=== PATIENT | female | born 1930 | race Hispanic/Latino ===

== ENCOUNTER 2018-01-22 23:47 | Inpatient (IN) | payer MEDICARE ==
[~2018-01-22] VITALS: Ht 152.4 cm; Wt 68.4 kg
[~2018-01-22 23:47] MED LIST: AEC81 PO; AMLO10TA2 PO; CLON0.2T PO; CLOP75TA32 PO; FURO20TA4 PO; HYDR100T27 PO; INSU100I3 SQ; LEVO100T12 PO; MINO2.5T3 PO; NEBI5TAB8 PO
[2018-01-23] MEDS ORDERED: IPRATROPIUM/ALBUTEROL SULFATE 3 ML SOLUTION IH ONE (00:48)
[2018-01-23 00:55] LABS: BASOPHILS % (AUTO) 0.4 % (0.0-5.0); HEMATOCRIT 31.7 % (36-48); LYMPHOCYTES % (AUTO) 1.9 % (21.0-51.0); MEAN CORPUSCULAR HGB CONC 33.8 g/dL (32.0-36.0); MEAN CORPUSCULAR VOLUME 94.5 fL (79-99); MONOCYTES % (AUTO) 4.3 % (3.0-13.0); NEUTROPHILS % (AUTO) 93.4 % (40.0-77.0); PLATELET COUNT (AUTO) 215 K/uL (130-400); RED BLOOD CELL COUNT(AUTO) 3.35 MIL/uL (4.00-5.50); RED CELL DISTRIBUTION WIDTH 13.7 % (11.0-15.5); WHITE BLOOD COUNT (AUTO) 17.9 K/uL (4.8-10.8)
[2018-01-23 01:06] LABS: ACETONE,BLOOD NEGATIVE (NEGATIVE)
[2018-01-23 01:14] LABS: B-TYPE NATRIURETIC PEPTIDE 1130 pg/mL (0-100)
[2018-01-23 01:19] LABS: ALANINE AMINOTRANSFERASE 21 U/L (12-78); ALBUMIN 3.2 g/dL (3.5-5.0); ASPARTATE AMINOTRANSFERASE 30 U/L (10-37); BILIRUBIN,TOTAL 0.3 mg/dL (0.2-1.0); CARBON DIOXIDE 21 mmol/L (21-32); CREATININE 3.5 mg/dL (0.5-1.5); GLOMERULAR FILTR. RATE CALC 13 mL/min (>60); TOTAL PROTEIN, SERUM 7.9 g/dL (6.0-8.3)
[2018-01-23 01:30] LABS: CHLORIDE 96 mmol/L (101-111); POTASSIUM 5.4 mmol/L (3.5-5.1); SODIUM SERUM 130 mmol/L (136-145)
[2018-01-23 01:35] LABS: GLUCOSE,RANDOM 526 mg/dL (70-105); UREA NITROGEN, BLOOD 105 mg/dL (7-18)
[2018-01-23] MEDS ORDERED: INSULIN HUMULIN R 100 UNIT/ML 3ML ONE (01:58)
[2018-01-23] MEDS ORDERED: SODIUM CHLORIDE 0.9% 1000ML 1,000 ML IV ONE (02:53)
[2018-01-23 03:14] LABS: APPEARANCE,URINE Clear (CLEAR); BILIRUBIN,URINE Negative (NEGATIVE); COLOR,URINE Yellow (YELLOW); GLUCOSE, URINE (UA) >=1000 mg/dL (NEGATIVE); KETONES,URINE Negative (NEGATIVE); LEUKOCYTE ESTERASE ,URINE Negative (NEGATIVE); NITRATE,URINE Negative (NEGATIVE); OCCULT BLOOD,URINE Negative (NEGATIVE); PROTEIN,URINE 300 (NEGATIVE); UROBILINOGEN,URINE 0.2 mg/dL (0.2-1.0)
[2018-01-23 03:24] LABS: RBC,URINE 0-1 /HPF (0-1)
[2018-01-23 03:25] LABS: BACTERIA,URINE Rare /HPF (None Seen); WBC,URINE 0-1 /HPF (0-1)
[2018-01-23] MEDS ORDERED: FUROSEMIDE 10 MG/ML 4ML VIAL ONE (03:25)
[2018-01-23] MEDS ORDERED: GUAIFENESIN-CODEINE 5 ML SYRUP PO PRN ×2 (03:30→05:00)
[2018-01-23] MEDS ORDERED: CLONIDINE HCL 0.1 MG TABLET ONE (03:53)
[2018-01-23] MEDS ORDERED: DEXTROSE 50%-WATER 50 ML DISP.SYRIN IV PRN (05:00)
[2018-01-23] MEDS ORDERED: SODIUM CHLORIDE 0.9% 1000ML 1,000 ML IV SCH (05:00)
[2018-01-23] MEDS ORDERED: GLUCAGON 1MG KIT 1 MG ML IM PRN (05:00)
[2018-01-23] MEDS ORDERED: ONDANSETRON HCL MDV 20ML 2 MG/ML VIAL IVP PRN (05:00)
[2018-01-23 05:30] VITALS: BP 177/64
[2018-01-23] MEDS ORDERED: SODIUM POLYSTYRENE SULFONATE 15 GM/60 ML ML PO ONE (05:45)
[2018-01-23] MEDS: ZOSYN 3.375GM+NS 50ML 50 ML IV SCH ×2 (06:17→18:10)
[2018-01-23] MEDS: INSULIN R PO SS1 SQ SCH ×4 (06:35→22:05)
[2018-01-23 06:48] LABS: HEMATOCRIT 29.9 % (36-48); MEAN CORPUSCULAR HEMOGLOBIN 32.1 pg (27.0-33.0); MEAN CORPUSCULAR HGB CONC 34.7 g/dL (32.0-36.0); MEAN CORPUSCULAR VOLUME 92.6 fL (79-99); PLATELET COUNT (AUTO) 224 K/uL (130-400); RED BLOOD CELL COUNT(AUTO) 3.23 MIL/uL (4.00-5.50); WHITE BLOOD COUNT (AUTO) 23.4 K/uL (4.8-10.8)
[2018-01-23 06:58] LABS: CREATININE 3.1 mg/dL (0.5-1.5); POTASSIUM 3.9 mmol/L (3.5-5.1)
[2018-01-23 07:00] VITALS: BP 178/54
[2018-01-23 07:31] LABS: B-TYPE NATRIURETIC PEPTIDE 936 pg/mL (0-100)
[2018-01-23] MEDS ORDERED: ONDANSETRON HCL 4 MG/2 ML VIAL ONE (07:36)
[2018-01-23 07:50] LABS: ABG BASE EXCESS -6.5 mmol/L (-2.0-3.0); ABG HCO3 17.7 mmol/L (21.0-28.0); ABG OXYGEN SATURATION 85.1 % (95.0-99.0); ABG PCO2 32 mmHg (32-45)
[2018-01-23 08:10] LABS: HEMOGLOBIN A1C 8.5 % (4.0-6.0)
[2018-01-23] MEDS: HYDRALAZINE HCL 20 MG/ML VIAL IV PRN (08:17)
[2018-01-23] MEDS ORDERED: FUROSEMIDE 10 MG/ML 4ML VIAL IVP SCH (09:00)
[2018-01-23] MEDS: IPRATROPIUM/ALBUTEROL SULFATE 3 ML SOLUTION IH SCH ×4 (10:15→22:26)
[2018-01-23 11:00] VITALS: BP 114/57
[2018-01-23] MEDS ORDERED: LEVOFLOXACIN 250 MG/D5W 50ML 50 ML IV SCH (11:00)
[2018-01-23] MEDS: HEPARIN SODIUM 5000UNIT/ML 1ML VIAL SQ SCH ×2 (14:45→22:03)
[2018-01-23 16:00] VITALS: BP 167/58
[2018-01-23] MEDS: ACETYLCYSTEINE 10% 100MG/ML 4ML VIAL IH SCH ×2 (19:05→22:27)
[2018-01-23 20:54] VITALS: BP 165/70
[2018-01-23] MEDS: DOXYCYCLINE 100MG+NS 250ML 250 ML IV SCH (21:59)
[2018-01-24 00:41] VITALS: BP 200/99
[2018-01-24] MEDS: HYDRALAZINE HCL 20 MG/ML VIAL IV PRN (01:02)
[2018-01-24] MEDS: IPRATROPIUM/ALBUTEROL SULFATE 3 ML SOLUTION IH SCH ×6 (01:14→22:05)
[2018-01-24] MEDS ORDERED: SODIUM CHLORIDE 3% FOR INHALATION 4 ML/AMP VIAL.NEB IH ONE (01:53)
[2018-01-24 01:54] VITALS: BP 170/80
[2018-01-24] MEDS: ACETAMINOPHEN 325 MG TAB PO PRN ×2 (03:33→23:05)
[2018-01-24 04:31] VITALS: BP 180/50
[2018-01-24] MEDS: ZOSYN 3.375GM+NS 50ML 50 ML IV SCH ×2 (06:17→18:48)
[2018-01-24] MEDS: ACETYLCYSTEINE 10% 100MG/ML 4ML VIAL IH SCH ×3 (06:19→22:05)
[2018-01-24] MEDS: INSULIN R PO SS1 SQ SCH ×4 (06:34→21:46)
[2018-01-24] MEDS: HEPARIN SODIUM 5000UNIT/ML 1ML VIAL SQ SCH ×3 (06:38→21:44)
[2018-01-24 06:41] LABS: HEMATOCRIT 31.6 % (36-48); MEAN CORPUSCULAR HEMOGLOBIN 30.7 pg (27.0-33.0); MEAN CORPUSCULAR HGB CONC 33.4 g/dL (32.0-36.0); MEAN CORPUSCULAR VOLUME 92.1 fL (79-99); PLATELET COUNT (AUTO) 215 K/uL (130-400); RED BLOOD CELL COUNT(AUTO) 3.43 MIL/uL (4.00-5.50); RED CELL DISTRIBUTION WIDTH 13.9 % (11.0-15.5); WHITE BLOOD COUNT (AUTO) 25.5 K/uL (4.8-10.8)
[2018-01-24 06:50] LABS: CREATININE 3.3 mg/dL (0.5-1.5); MAGNESIUM 1.4 mg/dL (1.80-2.40); POTASSIUM 3.7 mmol/L (3.5-5.1); URIC ACID 10.3 mg/dL (2.6-7.2)
[2018-01-24 07:46] LABS: LYMPHOCYTES % (MANUAL) 3 % (22-44); MAN.DIFF COMMENT-IMPRESSION MANUAL DIFFERENTIAL; MONOCYTES % (MANUAL) 7 % (2-9); SEGMENTED NEUTROPHILS % 90 % (40-70)
[2018-01-24 07:47] LABS: PLATELET MORPHOLOGY COMMENT ADEQUATE
[2018-01-24 08:36] VITALS: BP 165/59
[2018-01-24] MEDS ORDERED: LEVO100 PO (09:57)
[2018-01-24] MEDS ORDERED: ATOR40TA69 PO (09:57)
[2018-01-24] MEDS ORDERED: FURO40TA5 PO (09:57)
[2018-01-24] MEDS ORDERED: IBUP-2070 PO (09:57)
[2018-01-24] MEDS ORDERED: CARV6.25 PO (09:57)
[2018-01-24] MEDS ORDERED: MINO2.5T3 PO (09:57)
[2018-01-24] MEDS ORDERED: AMLO10TA2 PO (09:57)
[2018-01-24] MEDS ORDERED: CLON0.2T PO (09:57)
[2018-01-24] MEDS ORDERED: HYDR-4154 PO (09:57)
[2018-01-24] MEDS ORDERED: ISOS30TA6 PO (09:57)
[2018-01-24] MEDS ORDERED: AMLODIPINE BESYLATE 5 MG TAB PO SCH (10:00)
[2018-01-24] MEDS: DOXYCYCLINE 100MG+NS 250ML 250 ML IV SCH ×2 (10:58→21:44)
[2018-01-24] MEDS: FOLIC ACID/VITAMIN B COMP W-C 1 MG CAPSULE PO SCH (10:58)
[2018-01-24 12:00] VITALS: BP 197/55
[2018-01-24] MEDS: HYDRALAZINE HCL 25 MG TABLET PO SCH ×2 (14:40→21:43)
[2018-01-24] MEDS ORDERED: PHARMACY COMMUNICATION MISC SCH (15:00)
[2018-01-24] MEDS ORDERED: MAGNESIUM 2GM PREMIX 50ML 50 ML IV SCH (15:15)
[2018-01-24 16:00] VITALS: BP 173/97
[2018-01-24] MEDS ORDERED: FUROSEMIDE 40 MG TABLET PO SCH (17:00)
[2018-01-24] MEDS ORDERED: SODIUM CHLORIDE 0.9% 1000ML 1,000 ML IV SCH (18:45)
[2018-01-24] MEDS: CLONIDINE HCL 0.2 MG TABLET PO SCH (18:48)
[2018-01-24] MEDS: ZYVOX 600 MG TAB PO SCH (18:48)
[2018-01-24] MEDS: CARVEDILOL 6.25 MG TABLET PO SCH (21:43)
[2018-01-24] MEDS: ATORVASTATIN CALCIUM 40 MG TABLET PO SCH (21:44)
[2018-01-25] VITALS (7 sets, daily range): BP systolic 117–188; BP diastolic 49–78
[2018-01-25] MEDS: CLONIDINE HCL 0.2 MG TABLET PO SCH ×3 (01:12→16:05)
[2018-01-25] MEDS: IPRATROPIUM/ALBUTEROL SULFATE 3 ML SOLUTION IH SCH ×6 (02:32→21:34)
[2018-01-25 04:53] LABS: HEMATOCRIT 29.8 % (36-48); MEAN CORPUSCULAR HEMOGLOBIN 31.7 pg (27.0-33.0); MEAN CORPUSCULAR HGB CONC 34.5 g/dL (32.0-36.0); PLATELET COUNT (AUTO) 201 K/uL (130-400); RED BLOOD CELL COUNT(AUTO) 3.23 MIL/uL (4.00-5.50); RED CELL DISTRIBUTION WIDTH 13.8 % (11.0-15.5); WHITE BLOOD COUNT (AUTO) 20.2 K/uL (4.8-10.8)
[2018-01-25 05:06] LABS: BAND NEUTROPHILS % (MANUAL) 5 % (0-2); LYMPHOCYTES % (MANUAL) 4 % (22-44); MAN.DIFF COMMENT-IMPRESSION MANUAL DIFFERENTIAL; MONOCYTES % (MANUAL) 5 % (2-9); PLATELET MORPHOLOGY COMMENT ADEQUATE; SEGMENTED NEUTROPHILS % 86 % (40-70)
[2018-01-25 05:11] LABS: CREATININE 2.9 mg/dL (0.5-1.5); MAGNESIUM 1.5 mg/dL (1.80-2.40); PHOSPHORUS 3.8 mg/dL (2.5-4.9); POTASSIUM 3.5 mmol/L (3.5-5.1)
[2018-01-25] MEDS ORDERED: LEVOTHYROXINE 100 MCG TABLET PO SCH (06:30)
[2018-01-25] MEDS: ACETYLCYSTEINE 10% 100MG/ML 4ML VIAL IH SCH ×3 (06:39→21:34)
[2018-01-25] MEDS: ZYVOX 600 MG TAB PO SCH ×2 (06:42→16:00)
[2018-01-25] MEDS: HEPARIN SODIUM 5000UNIT/ML 1ML VIAL SQ SCH ×2 (06:51→16:10)
[2018-01-25] MEDS: INSULIN R PO SS1 SQ SCH ×4 (06:52→21:20)
[2018-01-25] MEDS: ZOSYN 3.375GM+NS 50ML 50 ML IV SCH (06:54)
[2018-01-25] MEDS ORDERED: AMLODIPINE BESYLATE 5 MG TAB PO SCH (09:00)
[2018-01-25] MEDS ORDERED: MINOXIDIL 2.5 MG TAB PO SCH (09:00)
[2018-01-25] MEDS ORDERED: ISOSORBIDE MONO 30MG TAB SR PO SCH (09:00)
[2018-01-25] MEDS: FOLIC ACID/VITAMIN B COMP W-C 1 MG CAPSULE PO SCH (11:12)
[2018-01-25] MEDS: HYDRALAZINE HCL 25 MG TABLET PO SCH ×3 (11:12→21:18)
[2018-01-25] MEDS: CARVEDILOL 6.25 MG TABLET PO SCH ×2 (11:12→21:18)
[2018-01-25] MEDS: DOXYCYCLINE 100MG+NS 250ML 250 ML IV SCH ×2 (11:13→21:17)
[2018-01-25] MEDS: ACETAMINOPHEN 325 MG TAB PO PRN (15:59)
[2018-01-25] MEDS: ATORVASTATIN CALCIUM 40 MG TABLET PO SCH (21:18)
== END 2018-01-25 23:20 | DRG 871 ==
LOC: EDH 23:47 → EDHIP 01-23 03:22 → 3DH 01-23 04:02
PROVIDERS: ADMIT Internal Medicine Nephrology; ATTEND Internal Medicine Nephrology
DX: A41.9 Sepsis, unspecified organism (principal); J18.9 Pneumonia, unspecified organism; N17.0 Acute kidney failure with tubular necrosis; J96.91 Respiratory failure, unspecified with hypoxia; E87.1 Hypo-osmolality and hyponatremia; I13.0 Hypertensive heart and chronic kidney disease with heart failure and stage 1 through stage 4 chronic kidney disease, or unspecified chronic kidney disease; J06.9 Acute upper respiratory infection, unspecified; E11.22 Type 2 diabetes mellitus with diabetic chronic kidney disease; N18.9 Chronic kidney disease, unspecified; E11.65 Type 2 diabetes mellitus with hyperglycemia; J20.9 Acute bronchitis, unspecified; E87.5 Hyperkalemia; E11.21 Type 2 diabetes mellitus with diabetic nephropathy; D64.9 Anemia, unspecified; E03.9 Hypothyroidism, unspecified; E11.51 Type 2 diabetes mellitus with diabetic peripheral angiopathy without gangrene; E83.42 Hypomagnesemia; E86.0 Dehydration; I08.1 Rheumatic disorders of both mitral and tricuspid valves; I25.10 Atherosclerotic heart disease of native coronary artery without angina pectoris; I50.9 Heart failure, unspecified; I70.1 Atherosclerosis of renal artery; M19.90 Unspecified osteoarthritis, unspecified site; Z90.710 Acquired absence of both cervix and uterus; Z88.3 Allergy status to other anti-infective agents; Z87.01 Personal history of pneumonia (recurrent); Z83.3 Family history of diabetes mellitus; Z82.49 Family history of ischemic heart disease and other diseases of the circulatory system
CPT/HCPCS: 36415; 36600; 71045; 71250; 76770; 80048; 80053; 81001; 82009; 82803; 82948; 83036; 83605; 83735; 83880; 83935; 84100; 84300; 84484; 84550; 85025; 85027; 87040; 87071; 87088; 87205; 87633; 92610; 93005; 94640; 94664; 94667; 94668; 99291; J0360; J1644; J1815; J1940; J1956; J2405; J2543; J3475; J3490; J7030; J7608